=== PATIENT | male | born 1965 | race Two or more races ===

== ENCOUNTER 2019-04-10 12:26 | Inpatient (IN) | payer OTHER ==
[2019-04-10 16:38] VITALS: BMI 22.4
--- NOTE | 2019-04-10 17:17 | HP ---
COWS - Scale Resting Pulse: 0= OR 80 or Below Sweatin= Chills/Flushing Restless Observation: 1= Difficult to Sit Still Pupil Size: 1= Pupils >than Normal Bone or Joint Aches: 1= Mild Discomfort Runny Nose/ Eye Tearin= Nasal Congestion GI Upset > 30mins: 1= Stomach Cramp Tremor Observation: 1= Tremor [place], Not Seen Yawning Observation: 0= None Anxiety or Irritability: 2=Irritable/Anxious Goose Flesh Skin: 3=Piloerection COWS Score: 12 CIWA Score Nausea/Vomitin-Mild Nausea/No Vomiting Muscle Tremors: 1-None Visible, but [place] Anxiety: 1-Mildly Anxious Agitation: 1-Slight > Activity Paroxysmal Sweats: No Perspiration Orientation: 0-Oriented Tacttile Disturbances: 0-None Auditory Disturbances: 0-None Visual Disturbances: 0-None Headache: 2-Mild CIWA-Ar Total Score: 6 - Admission Criteria OASAS Guidelines: Admission for Medically Managed Detox: Requires at least one of the followin. CIWA greater than 12 2. Seizures within the past 24 hours 3. Delirium tremens within the past 24 hours 4. Hallucinations within the past 24 hours 5. Acute intervention needed for co occurring medical disorder 6. Acute intervention needed for co occurring psychiatric disorder 7. Severe withdrawal that cannot be handled at a lower level of care (continued vomiting, continued diarrhea, abnormal vital signs) requiring intravenous medication and/or fluids 8. Admission [facility] Chief Complaint: polysubstance use- heroin, cocaine, oxy, BZO Allergies/Adverse Reactions: Allergies Allergy/AdvReac Type Severity Reaction Status Date / Time No Known Allergies Allergy Verified 08/31/12 15:17 History of Present Illness: 53 yo with HIV- VL- undetectable, CD4<200, polysubstance use here for detox and rehab. Pt was recently at [facility]- left one month ago. Says he relapsed the same day. Says he wants to complete detox and go [facility]. Says he needs help, needs to quit. Pt is currently homeless. Has a girlfriend. PCP- Dr. Cain, [facility] heroin-$60 cocaine-$100 alcohol- 1 case beer/day THC- $5/day DUR- no controlled substances UTox: yg, oxy, BZO Exam Limitations: No Limitations, Language Barrier (speaks sami and uruguayan) - Ebola screening Have you traveled outside of the country in the last 21 days: No (N) Have you had contact with anyone from an Ebola affected area: No Do you have a fever: No - Review of Systems Constitutional: No Symptoms Reported EENT: reports: No Symptoms Reported Respiratory: reports: No Symptoms reported : reports: No Symptoms Reported Musculoskeletal: reports: No Symptoms Reported Integumentary: reports: No Symptoms Reported Neuro: reports: No Symptoms reported Endocrine: reports: No Symptoms Reported Hematology: reports: No Symptoms Reported Psychiatric: reports: No Sypmtoms Reported Other Systems: Reviewed and Negative Patient History - Patient Medical History Hx Asthma: No Hx Chronic Obstructive Pulmonary Disease (COPD): No Hx Cancer: No Hx Cardiac Disorders: No Hx Congestive Heart Failure: No Hx Hypertension: No Hx Hypercholesterolemia: No Hx Pacemaker: No HX Cerebrovascular Accident: No Hx Seizures: No Hx Dementia: No Hx Diabetes: No Hx Gastrointestinal Disorders: No Hx Liver Disease: No Hx Genitourinary Disorders: No Hx Sexually Transmitted Disorders: No Hx Renal Disease (ESRD): No Hx Thyroid Disease: No Hx Human Immunodeficiency Virus (HIV): Yes (1987- H/O pcp 2005 [facility] STAY 4 MONTHS) Hx Hepatitis C: Yes Hx Depression: No Hx Suicide Attempt: No Hx Bipolar Disorder: No Hx Schizophrenia: No - Patient Surgical History Past Surgical History: Yes Hx Neurologic Surgery: No Hx Cataract Extraction: No Hx Cardiac Surgery: No Hx Lung Surgery: No Hx Breast Surgery: No Hx Breast Biopsy: No Hx Abdominal Surgery: No Hx Appendectomy: No Hx Cholecystectomy: No Hx Genitourinary Surgery: No Hx Section: No Hx Orthopedic Surgery: Yes (left knee pinning, both hip replacement) Anesthesia Reaction: Yes - PPD History Previous Implant?: No (pos PPD hx) Results: pos PPD hx - Smoking Cessation Smoking history: Current every day smoker Have you smoked in the past 12 months: Yes Aproximately how many cigarettes per day: 20 Cigars Per Day: 0 Hx Chewing Tobacco Use: No Initiated information on smoking cessation: Yes 'Breaking Loose' booklet given: 04/10/19 - Substance & Tx. History Hx Substance Use Treatment: No - Substances abused Heroin Substance route: Injection Frequency: Daily Amount used: 2 to 3 bags Age of first use: 9 Date of last use: 04/09/19 Cocaine Substance route: Smoking Frequency: Daily Amount used: $100 Age of first use: 16 Date of last use: 04/09/19 Crack Substance route: Smoking Frequency: Daily Amount used: $100 Age of first use: 19 Date of last use: 04/09/19 Admission Physical Exam [facility] - Vital Signs Vital Signs: Vital Signs - 24 hr 04/10/19 16:32 Temperature 99.1 F Pulse Rate 80 Respiratory 18 Rate Blood Pressure 141/94 Breathalyzer - Breathalyzer Breathalyzer: 0 Urine Drug Screen - Test Device Lot number: [id number] Expiration date: 12/29/20 - Control Is test valid?: Yes - Results Drug screen NEGATIVE: No Urine drug screen results: YG-Cocaine, OXY-Oxycodone, BZO-Benzodiazepines Inpatient Rehab Admission - Rehab Decision to Admit Inpatient rehab admission?: No
[2019-04-10] MEDS ORDERED: MAG HYDROX/AL HYDROX/SIMETH 30 ML UNIT-DOSE CUP PO PRN (17:31)
[2019-04-10] MEDS ORDERED: MAGNESIUM HYDROX 2400MG/30ML ORAL SUSPENSION 30 ML CUP PO PRN (17:31)
[2019-04-10] MEDS ORDERED: METHOCARBAMOL 500 MG TABLET PO PRN (17:31)
[2019-04-10] MEDS ORDERED: MAGNESIUM CITRATE 300 ML BOTTLE PO PRN (17:31)
[2019-04-10] MEDS ORDERED: cloNIDine HCL 0.1 MG TABLET PO PRN (17:31)
[2019-04-10] MEDS ORDERED: hydrOXYzine PAMOATE 25 MG CAPSULE (FP) PO PRN (17:31)
[2019-04-10] MEDS ORDERED: MENTHOL/PHENOL 1 EACH UD MM PRN (17:31)
[2019-04-10] MEDS ORDERED: BISMUTH SUBSALICYLATE 524 MG/30 ML UD PO PRN (17:31)
[2019-04-10] MEDS ORDERED: ACETAMINOPHEN 325 MG TABLET (FP) PO PRN ×2 (17:31)
[2019-04-10] MEDS ORDERED: MELATONIN 5 MG TABLETS PO PRN (17:31)
[2019-04-10] MEDS ORDERED: NALOXONE HCL 0.4 MG/ML VIAL IM PRN (17:31)
[2019-04-10] MEDS ORDERED: clonazePAM 0.5 MG TABLET PO PRN (17:31)
[2019-04-10] MEDS ORDERED: IBUPROFEN 400 MG TABLET (FP) PO PRN (17:31)
[2019-04-10] MEDS ORDERED: DICYCLOMINE HCL 10 MG CAPSULE PO PRN (17:31)
[2019-04-10] MEDS ORDERED: NICOTINE POLACRILEX 4 MG GUM BUC PRN (17:31)
[2019-04-10] MEDS ORDERED: METHADONE HCL 10 MG TABLET (FOR DETOX USE ONLY) PO ONE (19:00)
[2019-04-10] MEDS: THIAMINE HCL 100 MG TABLET (FP) PO SCH (22:44)
[2019-04-11] MEDS ORDERED: METHADONE HCL 5 MG TABLET (FOR DETOX USE ONLY) PO ONE (10:00)
[2019-04-11] MEDS: PRENATAL VITAMINS W/ FOLIC ACID TABLET (FP) PO SCH (10:43)
[2019-04-11 12:34] LABS: ALBUMIN 3.5 g/dl (3.4-5.0); BILIRUBIN,TOTAL 0.5 mg/dL (0.2-1); BLOOD UREA NITROGEN 11.7 mg/dL (7-18); CALCIUM 9.1 mg/dL (8.5-10.1); CREATININE 1.2 mg/dL (0.55-1.3); POTASSIUM 4.5 mmol/L (3.5-5.1); TOT PROT 7.8 g/dl (6.4-8.2)
[2019-04-11 12:38] LABS: HEMATOCRIT 47.1 % (35.4-49); HEMOGLOBIN 15.1 GM/dL (11.7-16.9); MCH 29.6 pg (25.7-33.7); MEAN CELL VOLUME 92.4 fl (80-96); MEAN PLT VOLUME 9.3 fl (7.5-11.1); PLATELET COUNT 102 K/MM3 (134-434); RBC 5.09 M/mm3 (4.00-5.60); RDW 14.9 % (11.9-15.9); WHITE BLOOD COUNT 6.5 K/mm3 (4.0-10.0)
--- NOTE | 2019-04-11 13:33 | PN ---
S CIWA - CIWA Score Nausea/Vomitin-Mild Nausea/No Vomiting Muscle Tremors: 3 Anxiety: 3 Agitation: 2 Paroxysmal Sweats: 2 Orientation: 0-Oriented Tacttile Disturbances: 0-None Auditory Disturbances: 0-None Visual Disturbances: 0-None Headache: 0-None Present CIWA-Ar Total Score: 11 S COWS - Scale Resting Pulse: 1= [place] 81-100 Sweatin= No chills or Flushing Restless Observation: 0= Sits Still Pupil Size: 1= Pupils >than Normal Bone or Joint Aches: 1= Mild Discomfort Runny Nose/ Eye Tearin= Nasal Congestion GI Upset > 30mins: 1= Stomach Cramp Tremor Observation of Outstretched Hands: 2= Slight Tremor Visible Yawning Observation: 1= 1-2x During Session Anxiety or Irritability: 2=Irritable/Anxious Goose Flesh Skin: 3=Piloerection COWS Score: 13 S Progress Note (SOAP) Subjective: 53 years old male [address] [facility] admission since 2010 was admitted on 04/10/19 for benzo and opiate withdrawal sx management doing well with klonopin prn and methadone detox regimen sleep better at night well-rested ambulating on hallway social with peers in day room Objective: 04/11/19 13:35 Vital Signs Temperature 99.7 F H 04/11/19 09:22 Pulse Rate 83 04/11/19 09:22 Respiratory Rate 18 04/11/19 09:22 Blood Pressure 112/80 04/11/19 09:22 O2 Sat by Pulse Oximetry (%) Laboratory Last Values WBC 6.5 K/mm3 (4.0-10.0) 04/11/19 08:35 RBC 5.09 M/mm3 (4.00-5.60) 04/11/19 08:35 Hgb 15.1 GM/dL (11.7-16.9) 04/11/19 08:35 Hct 47.1 % (35.4-49) D 04/11/19 08:35 MCV 92.4 fl (80-96) 04/11/19 08:35 MCH 29.6 pg (25.7-33.7) 04/11/19 08:35 MCHC 32.0 g/dl (32.0-35.9) 04/11/19 08:35 RDW 14.9 % (11.9-15.9) D 04/11/19 08:35 Plt Count 102 K/MM3 (134-434) L 04/11/19 08:35 MPV 9.3 fl (7.5-11.1) D 04/11/19 08:35 Sodium 137 mmol/L (136-145) 04/11/19 08:35 Potassium 4.5 mmol/L (3.5-5.1) 04/11/19 08:35 Chloride 98 mmol/L (98-107) 04/11/19 08:35 Carbon Dioxide 32 mmol/L (21-32) 04/11/19 08:35 Anion Gap 7 MMOL/L (8-16) L 04/11/19 08:35 BUN 11.7 mg/dL (7-18) 04/11/19 08:35 Creatinine 1.2 mg/dL (0.55-1.3) 04/11/19 08:35 Est GFR (CKD-EPI)AfAm 80.10 04/11/19 08:35 Est GFR (CKD-EPI)NonAf 69.11 04/11/19 08:35 Random Glucose 121 mg/dL (74-106) H 04/11/19 08:35 Calcium 9.1 mg/dL (8.5-10.1) 04/11/19 08:35 Total Bilirubin 0.5 mg/dL (0.2-1) 04/11/19 08:35 AST 55 U/L (15-37) H 04/11/19 08:35 ALT 36 U/L (13-61) 04/11/19 08:35 Alkaline Phosphatase 80 U/L (45-117) 04/11/19 08:35 Total Protein 7.8 g/dl (6.4-8.2) 04/11/19 08:35 Albumin 3.5 g/dl (3.4-5.0) 04/11/19 08:35 RPR Titer Nonreactive (NONREACTIVE) 04/11/19 08:35 lab noted Assessment: 04/11/19 13:36 benzo and opiate withdrawal sx Plan: continue klonopin and methadone detox regimen
[2019-04-11] MEDS: THIAMINE HCL 100 MG TABLET (FP) PO SCH (22:04)
[2019-04-12 09:12] VITALS: BP 110/71; PULSE 84; TEMP 98.8
[2019-04-12] MEDS: PRENATAL VITAMINS W/ FOLIC ACID TABLET (FP) PO SCH (09:53)
[2019-04-12] MEDS ORDERED: METHADONE HCL 10 MG TABLET (FOR DETOX USE ONLY) PO ONE (10:00)
--- NOTE | 2019-04-12 13:17 | DS ---
[facility] Detox Discharge Summary Admission Date: 04/10/19 Discharge Date: 04/12/19 - History Present History: Opioid Dependence, Sedative Dependence Additional Comments: 53 years old male admitted on 04/10/19 for benzo and opiate withdrawal sx management did well with klonopin prn and methadone detox regimen no complication through out the detox stay patient is alert oriented x 3 no chest pain no shortness of breath no wheezing ambulating steady gait extremities full range of motion skin warm and dry - Physical Exam Results Vital Signs: Vital Signs Temperature 98.8 F 04/12/19 09:11 Pulse Rate 84 04/12/19 09:11 Respiratory Rate 18 04/12/19 09:11 Blood Pressure 110/71 04/12/19 09:11 O2 Sat by Pulse Oximetry (%) Pertinent Admission Physical Exam Findings: benzo and opiate withdrawal sx Laboratory Last Values WBC 6.5 K/mm3 (4.0-10.0) 04/11/19 08:35 RBC 5.09 M/mm3 (4.00-5.60) 04/11/19 08:35 Hgb 15.1 GM/dL (11.7-16.9) 04/11/19 08:35 Hct 47.1 % (35.4-49) D 04/11/19 08:35 MCV 92.4 fl (80-96) 04/11/19 08:35 MCH 29.6 pg (25.7-33.7) 04/11/19 08:35 MCHC 32.0 g/dl (32.0-35.9) 04/11/19 08:35 RDW 14.9 % (11.9-15.9) D 04/11/19 08:35 Plt Count 102 K/MM3 (134-434) L 04/11/19 08:35 MPV 9.3 fl (7.5-11.1) D 04/11/19 08:35 Sodium 137 mmol/L (136-145) 04/11/19 08:35 Potassium 4.5 mmol/L (3.5-5.1) 04/11/19 08:35 Chloride 98 mmol/L (98-107) 04/11/19 08:35 Carbon Dioxide 32 mmol/L (21-32) 04/11/19 08:35 Anion Gap 7 MMOL/L (8-16) L 04/11/19 08:35 BUN 11.7 mg/dL (7-18) 04/11/19 08:35 Creatinine 1.2 mg/dL (0.55-1.3) 04/11/19 08:35 Est GFR (CKD-EPI)AfAm 80.10 04/11/19 08:35 Est GFR (CKD-EPI)NonAf 69.11 04/11/19 08:35 Random Glucose 121 mg/dL (74-106) H 04/11/19 08:35 Calcium 9.1 mg/dL (8.5-10.1) 04/11/19 08:35 Total Bilirubin 0.5 mg/dL (0.2-1) 04/11/19 08:35 AST 55 U/L (15-37) H 04/11/19 08:35 ALT 36 U/L (13-61) 04/11/19 08:35 Alkaline Phosphatase 80 U/L (45-117) 04/11/19 08:35 Total Protein 7.8 g/dl (6.4-8.2) 04/11/19 08:35 Albumin 3.5 g/dl (3.4-5.0) 04/11/19 08:35 RPR Titer Nonreactive (NONREACTIVE) 04/11/19 08:35 lab noted - Treatment Hospital Course: Detox Protocol Followed, Detoxed Safely, Responded well, Discharged Condition Good, Rehab Referral Accepted Patient has Accepted [facility] - Medication Discharge Medications: Ambulatory Orders Atazanavir [Reyataz -] 300 mg PO DAILY 04/11/12 Emtricitabine/Tenofovir [Truvada -] 1 tab PO DAILY 04/11/12 Ritonavir [Norvir] 100 mg PO DAILY 04/11/12 Sulfamethoxazole/Trimethoprim [Bactrim DS -] 1 tab PO DAILY 04/11/12 - Diagnosis (1) Sedative, hypnotic or anxiolytic abuse, uncomplicated Current Visit: Yes Status: Acute (2) Uncomplicated opioid dependence Current Visit: Yes Status: Acute (3) Nicotine dependence Current Visit: Yes Status: Active - AMA Did Patient Leave Against Medical Advice: No CIWA Score - CIWA Score Nausea/Vomitin-No Nausea/No Vomiting Muscle Tremors: 2 Anxiety: 2 Agitation: 1-Slight > Activity Paroxysmal Sweats: 1-Minimal Palms Moist Orientation: 0-Oriented Tacttile Disturbances: 0-None Auditory Disturbances: 0-None Visual Disturbances: 0-None Headache: 0-None Present CIWA-Ar Total Score: 6 COWS (PN) - Opiate Withdrawal Resting Pulse: 1= [place] 81-100 Sweatin= Chills/Flushing Restless Observation: 0= Sits Still Pupil Size: 0= Normal to Room Light Bone or Joint Aches: 1= Mild Discomfort Runny Nose/ Eye Tearin= Nasal Congestion GI Upset > 30mins: 1= Stomach Cramp Tremor Observation of Outstretched Hands: 1= Tremor [place], Not Seen Yawning Observation: 1= 1-2x During Session Anxiety or Irritability: 1=Feels Anxious/Irritable Goose Flesh Skin: 0=Smooth Skin COWS Score: 8
[2019-04-12 15:36] LABS: URINE APPEARANCE CLEAR; URINE BILIRUBIN NEGATIVE (NEGATIVE); URINE COLOR YELLOW; URINE GLUCOSE (UA) NEGATIVE (NEGATIVE); URINE KETONE NEGATIVE (NEGATIVE); URINE LEUK ESTERASE NEGATIVE (NEGATIVE); URINE NITRITE NEGATIVE (NEGATIVE); URINE PROTEIN NEGATIVE (NEGATIVE); URINE UROBILINOGEN 0.2 mg/dL (0.2-1.0)
[2019-04-13] MEDS ORDERED: METHADONE HCL 5 MG TABLET (FOR DETOX USE ONLY) PO ONE (06:00)
== END 2019-04-12 12:47 | disposition other institution (70) | DRG 773 ==
LOC: YASAS 12:26 → Y3N 18:32
PROVIDERS: ADMIT Surgery; ATTEND Surgery
PROC: HZ2ZZZZ Detoxification Services for Substance Abuse Treatment (ICD-10-PCS; principal; 2019-04-10)
DX: F11.23 Opioid dependence with withdrawal (principal); F13.230 Sedative, hypnotic or anxiolytic dependence with withdrawal, uncomplicated; F14.20 Cocaine dependence, uncomplicated; F17.210 Nicotine dependence, cigarettes, uncomplicated; B20 Human immunodeficiency virus [HIV] disease; Z59.0 Homelessness
CPT/HCPCS: 36415; 71046-TC-FY; 80053; 81003; 85027; 86593

== ENCOUNTER 2019-04-12 13:08 | Inpatient (IN) | payer OTHER ==
--- NOTE | 2019-04-12 13:27 | HP ---
[facility] Rehab Assess/Revision - Admission History Admitted to Rehab from: [facility] Date of Admission to Rehab: 04/12/19 - Findings Detox History & Physical reviewed: Yes Concur with findings: Yes Comments/Additional Findings: transferred from detox to rehab as per protocol Inpatient Rehab Admission - Rehab Decision to Admit Inpatient rehab admission?: Yes - Initial Determination Are CD services needed?: Yes Free of communicable disease: Yes Not in need of hospitalization: Yes - Rehab Admission Criteria Previous failed treatment: Yes Poor recovery environment: Yes Comorbidities: Yes Lacks judgement: Yes Patient is meeting Inpatient Rehab admission criteria:: Yes
[2019-04-12] MEDS ORDERED: MENTHOL/PHENOL 1 EACH UD MM PRN (13:28)
[2019-04-12] MEDS ORDERED: MAG HYDROX/AL HYDROX/SIMETH 30 ML UNIT-DOSE CUP PO PRN (13:28)
[2019-04-12] MEDS ORDERED: MAGNESIUM CITRATE 300 ML BOTTLE PO PRN (13:28)
[2019-04-12] MEDS ORDERED: P-EPHED 60MG/TRIPROLIDI 2.5MG TABLET PO PRN (13:28)
[2019-04-12] MEDS ORDERED: guaiFENesin 200 MG/10 ML 10 ML UNIT-DOSE CUPS PO PRN (13:28)
[2019-04-12] MEDS ORDERED: LOPERAMIDE HCL 2 MG CAPSULE PO PRN (13:28)
[2019-04-12] MEDS ORDERED: MAGNESIUM HYDROX 2400MG/30ML ORAL SUSPENSION 30 ML CUP PO PRN (13:28)
[2019-04-12] MEDS ORDERED: IBUPROFEN 400 MG TABLET (FP) PO PRN (13:28)
[2019-04-12] MEDS ORDERED: NICOTINE POLACRILEX 2 MG GUM BUC PRN (13:32)
[2019-04-12] MEDS ORDERED: NICOTINE 7 MG/24 HOURS TOPICAL PATCH TD PRN (13:32)
[2019-04-12] MEDS: THIAMINE HCL 100 MG TABLET (FP) PO SCH (21:55)
[2019-04-12] MEDS: ACETAMINOPHEN 325 MG TABLET (FP) PO PRN (22:40)
[2019-04-13] MEDS: PRENATAL VITAMINS W/ FOLIC ACID TABLET (FP) PO SCH (10:45)
[2019-04-13] MEDS: ACETAMINOPHEN 325 MG TABLET (FP) PO PRN (20:26)
[2019-04-13] MEDS: THIAMINE HCL 100 MG TABLET (FP) PO SCH (22:00)
[2019-04-14] MEDS: PRENATAL VITAMINS W/ FOLIC ACID TABLET (FP) PO SCH (10:21)
[2019-04-14] MEDS: THIAMINE HCL 100 MG TABLET (FP) PO SCH (22:26)
[2019-04-15] MEDS: PRENATAL VITAMINS W/ FOLIC ACID TABLET (FP) PO SCH (10:55)
[2019-04-15] MEDS: THIAMINE HCL 100 MG TABLET (FP) PO SCH (21:36)
[2019-04-16] MEDS: PRENATAL VITAMINS W/ FOLIC ACID TABLET (FP) PO SCH (10:20)
[2019-04-16] MEDS: ACETAMINOPHEN 325 MG TABLET (FP) PO PRN (18:17)
[2019-04-16] MEDS: THIAMINE HCL 100 MG TABLET (FP) PO SCH (21:57)
[2019-04-17] MEDS ORDERED: ALBUTEROL SO4 0.083% IH SOL 2.5 MG/3 ML VIAL.NEB. NEB PRN (09:45)
--- NOTE | 2019-04-17 09:47 | PN ---
S Progress Note Note: Patient c/o of generalized body aches, post detox, c/o of left side chest pain which began last night rates 6/10, worsen with touch, reports Vital Signs Temperature 97.6 F 04/17/19 06:44 Pulse Rate 88 04/17/19 06:44 Respiratory Rate 18 04/17/19 06:44 Blood Pressure 128/73 04/17/19 06:44 O2 Sat by Pulse Oximetry (%) Patient Aox3 no acute distress EENT WNL + mild LL wheezing s1 s2, no JVD, +reproducible left upper chest tenderness skin intact, no edema or erythema full ROM, no gait disturbance EKG ordered : NSR v/s stable WNL patient reports improvement in CP after taken tylenol and neb tx muscular chest pain increase po fluids continue to monitor
[2019-04-17] MEDS: PRENATAL VITAMINS W/ FOLIC ACID TABLET (FP) PO SCH (10:21)
[2019-04-17] MEDS: ACETAMINOPHEN 325 MG TABLET (FP) PO PRN ×2 (10:23→22:48)
--- NOTE | 2019-04-17 21:24 | EKG ---
Test Reason : Blood Pressure : / mmHG Vent. Rate : 082 BPM Atrial Rate : 082 BPM P-R Int : 152 ms QRS Dur : 072 ms QT Int : 350 ms P-R-T Axes : 079 064 070 degrees QTc Int : 408 ms NORMAL SINUS RHYTHM WITH SINUS ARRHYTHMIA NORMAL ECG NO PREVIOUS ECGS AVAILABLE Confirmed by MD THOMPSON, SHAHIDA ([id number]) on 04/17/2019 9:24:28 PM Referred By: KYM HUITRON Confirmed By:SHAHIDA MACKAY MD
[2019-04-17] MEDS: THIAMINE HCL 100 MG TABLET (FP) PO SCH (21:41)
[2019-04-17] MEDS: MELATONIN 5 MG TABLETS PO PRN (21:41)
[2019-04-18] MEDS: PRENATAL VITAMINS W/ FOLIC ACID TABLET (FP) PO SCH (10:02)
[2019-04-18] MEDS: LIDOCAINE 5% TOPICAL PATCH TP SCH (10:03)
[2019-04-18] MEDS: THIAMINE HCL 100 MG TABLET (FP) PO SCH (21:45)
[2019-04-18] MEDS: MELATONIN 5 MG TABLETS PO PRN (21:45)
[2019-04-18] MEDS: LIDOCAINE PATCH REMOVAL MC SCH (21:45)
[2019-04-19] MEDS: PRENATAL VITAMINS W/ FOLIC ACID TABLET (FP) PO SCH (09:44)
[2019-04-19] MEDS: LIDOCAINE 5% TOPICAL PATCH TP SCH (09:44)
[2019-04-19] MEDS: MELATONIN 5 MG TABLETS PO PRN (21:06)
[2019-04-19] MEDS: LIDOCAINE PATCH REMOVAL MC SCH (21:06)
[2019-04-19] MEDS: THIAMINE HCL 100 MG TABLET (FP) PO SCH (21:06)
[2019-04-20] MEDS: LIDOCAINE 5% TOPICAL PATCH TP SCH (09:41)
[2019-04-20] MEDS: PRENATAL VITAMINS W/ FOLIC ACID TABLET (FP) PO SCH (09:41)
[2019-04-20] MEDS: LIDOCAINE PATCH REMOVAL MC SCH (21:51)
[2019-04-20] MEDS: THIAMINE HCL 100 MG TABLET (FP) PO SCH (21:51)
[2019-04-21] MEDS: PRENATAL VITAMINS W/ FOLIC ACID TABLET (FP) PO SCH (09:55)
[2019-04-21] MEDS: LIDOCAINE 5% TOPICAL PATCH TP SCH (09:55)
[2019-04-21] MEDS: LIDOCAINE PATCH REMOVAL MC SCH (21:11)
[2019-04-21] MEDS: THIAMINE HCL 100 MG TABLET (FP) PO SCH (21:11)
[2019-04-22] MEDS: ACETAMINOPHEN 325 MG TABLET (FP) PO PRN ×2 (10:07→22:09)
[2019-04-22] MEDS: PRENATAL VITAMINS W/ FOLIC ACID TABLET (FP) PO SCH (10:07)
[2019-04-22] MEDS: LIDOCAINE 5% TOPICAL PATCH TP SCH (10:07)
[2019-04-22] MEDS: THIAMINE HCL 100 MG TABLET (FP) PO SCH (22:09)
[2019-04-22] MEDS: LIDOCAINE PATCH REMOVAL MC SCH (22:09)
--- NOTE | 2019-04-22 22:38 | PN ---
[facility] Progress Note Note: Ms. Annamaria Kemp RN reported that patient had a fever of T101.4 Vital Signs Temperature 101.4 F H 04/22/19 20:39 Pulse Rate 94 H 04/22/19 20:39 Respiratory Rate 18 04/22/19 20:39 Blood Pressure 110/75 04/22/19 20:39 O2 Sat by Pulse Oximetry (%) Action: Labs and UA ordered Tylenol 650mg tablet oral Q6H prn as needed Monitor [patient
[2019-04-23 07:44] VITALS: BP 104/68; PULSE 84; TEMP 98.3
[2019-04-23] MEDS: PRENATAL VITAMINS W/ FOLIC ACID TABLET (FP) PO SCH (09:04)
[2019-04-23] MEDS: LIDOCAINE 5% TOPICAL PATCH TP SCH (09:04)
[2019-04-23] MEDS: ACETAMINOPHEN 325 MG TABLET (FP) PO PRN (09:08)
--- NOTE | 2019-04-23 10:22 | DS ---
[facility] Rehab Discharge Summary - [facility] Rehab Discharge Summary Admission Date: 04/12/19 Discharge Date: 04/23/19 - History Present History: Cocaine dependence, Opioid dependence, Sedative dependence - Discharge Physical Exam Vital Signs: Vital Signs Temperature 98.3 F 04/23/19 06:00 Pulse Rate 84 04/23/19 06:00 Respiratory Rate 18 04/23/19 06:00 Blood Pressure 104/68 04/23/19 06:00 O2 Sat by Pulse Oximetry (%) Pertinent Admission Physical Exam Findings: ROS: NEGATIVE H/A, CHEST PAIN, SOB, OPIOD CRAVINGS, ANXIETY AND SI/HI PE ALERT AND ORIENTED X 3 SKIN WARM AND DRY +PERRLA, EOMS INTACT BL NECK SUPPLE, NO JVD CAR S1S2 RESP CTA BL EXT FULL ROM, AMB AD ALYSON - Treatment Discharge Condition: Discharge condition good Hospital Course: PATIENT D/C FROM REHAB TODAY, MEDICALLY STABLE, DENIES SI/HI. PATIENT STATES HE ACCOMPLISHED ALL REHAB GOALS AND HAS AFTERCARE ARRANGED FOR [facility]. APPT SCHEDULED FOR TODAY AT 10AM, . PATIENT ENCOURAGED TO CONTINUE WITH OUTPATIENT TREATMENT AND GROUP MEETINGS TO PREVENT RELAPSE. - Medication Discharge Medications: Ambulatory Orders Ritonavir [Norvir] 100 mg PO DAILY 04/11/12 Sulfamethoxazole/Trimethoprim [Bactrim DS -] 1 tab PO DAILY 04/11/12 Elviteg/Cob/Emtri/Tenof Alafen [Genvoya Tablet] 1 tab PO DAILY 04/12/19 - Medication-Assisted Treatment (MAT) Medication-Assisted Treatment (MAT): No - Discharge Instructions Diet, activity, other medical instructions: Diet: REG Activity: [place] Other medical instructions: FOLLOW UP WITH PCP WITHIN ONE WEEK OF DISCHARGE - Diagnosis (1) Cocaine dependence Status: Chronic (2) Nicotine dependence Status: Chronic (3) Sedative, hypnotic or anxiolytic abuse, uncomplicated Status: Chronic (4) Uncomplicated opioid dependence Status: Chronic - Follow-up Referral Minutes to complete discharge: 30 - AMA Did Patient Leave Against Medical Advice: No
== END 2019-04-23 09:40 | disposition home or self-care (01) | DRG 772 ==
LOC: YASAS 13:08 → Y3W 13:10
PROVIDERS: ADMIT Neuromusculoskeletal Medicine & OMM; ATTEND Neuromusculoskeletal Medicine & OMM
PROC: HZ42ZZZ Group Counseling for Substance Abuse Treatment, Cognitive-Behavioral (ICD-10-PCS; principal; 2019-04-12)
DX: F11.20 Opioid dependence, uncomplicated (principal); F13.20 Sedative, hypnotic or anxiolytic dependence, uncomplicated; F14.20 Cocaine dependence, uncomplicated; F17.210 Nicotine dependence, cigarettes, uncomplicated; R50.9 Fever, unspecified; R07.9 Chest pain, unspecified; R06.2 Wheezing
CPT/HCPCS: 93005; 93010